=== PATIENT | male | born 1970 | race Hispanic/Latino ===

== ENCOUNTER 2022-09-12 07:33 | Day surgery (SDC) | payer BC ==
[2022-09-08 15:45] LABS: BASOPHILS % (AUTO) 0.8 % (0.0-5.0); EOSINOPHILS % (AUTO) 2.9 % (0.0-8.0); HEMATOCRIT 38.9 % (42-54); MEAN CORPUSCULAR HGB CONC 32.9 g/dL (32.0-36.0); MEAN CORPUSCULAR VOLUME 91.3 fL (79-99); MONOCYTES % (AUTO) 9.3 % (3.0-13.0); NEUTROPHILS % (AUTO) 51.6 % (40.0-77.0); PLATELET COUNT (AUTO) 167 K/uL (130-400); RED BLOOD CELL COUNT(AUTO) 4.26 MIL/uL (4.50-6.20); RED CELL DISTRIBUTION WIDTH 13.5 % (11.0-15.5); WHITE BLOOD COUNT (AUTO) 5.2 K/uL (4.8-10.8)
[2022-09-08 15:58] LABS: CREATININE 1.1 mg/dL (0.5-1.5); POTASSIUM 3.9 mmol/L (3.5-5.1)
[2022-09-09 09:28] VITALS: BP 113/81
[2022-09-12] VITALS (8 sets, daily range): BP systolic 114–148; BP diastolic 77–98
[~2022-09-12] VITALS: Ht 177.8 cm; Wt 104.3 kg
[~2022-09-12 07:33] MED LIST: 0.9% NACL 500ML IV.SOLN 500 ML IV SCH; ACET-2247 PO; APIX5TAB PO; DRON400T7 PO; DULA0.75 SQ; GABA300C PO; LISI20TA24 PO; METF-444 PO; PROPOFOL 10 MG/ML 20ML VIAL IV ONE; VITAMIN D PO
== END 2022-09-12 11:20 | disposition home or self-care (01) ==
LOC: DAH 07:33
PROVIDERS: ATTEND Internal Medicine Cardiovascular Disease
DX: I48.19 Other persistent atrial fibrillation (principal); Z20.822 Contact with and (suspected) exposure to COVID-19; E78.5 Hyperlipidemia, unspecified; G47.33 Obstructive sleep apnea (adult) (pediatric); I10 Essential (primary) hypertension; E11.9 Type 2 diabetes mellitus without complications; Z86.16 Personal history of COVID-19; Z82.49 Family history of ischemic heart disease and other diseases of the circulatory system; Z83.3 Family history of diabetes mellitus; Z79.01 Long term (current) use of anticoagulants; Z79.84 Long term (current) use of oral hypoglycemic drugs; Z79.899 Other long term (current) drug therapy
CPT/HCPCS: 80048; 85025; 87426; 36415; 92960; 82948; 93005 ×2; J2704; A4223 ×3; A4215; A7002; A4222; A4221; A4663; A4216; J7030; A4606